=== PATIENT | male | born 1970 | race Caucasian/White ===

== ENCOUNTER → 2022-05-19 10:18 | Outpatient (CLI) | payer OTHER, SELFPAY ==
[2022-05-19 11:00] LABS: Add Manual Diff / Slide Review NO; Basophils Absolute Auto 0 /uL (0-100); Basophils Percent Auto 0.6 % (0-2); Eosinophils Absolute Auto 100 /uL (0-450); Eosinophils Percent Auto 2.1 % (2-4); Hematocrit 42.7 % (41-53); Hemoglobin 14.6 g/dL (13.5-17.5); Lymphocytes Absolute Auto 1600 /uL (1100-4500); Lymphocytes Percent Auto 39.2 % (25-40); Mean Corpuscular HGB Conc 34.3 % (30-36); Mean Corpuscular Hemoglobin 31.3 PG (26-34); Mean Corpuscular Volume 91.2 fL (80-100); Monocytes Absolute Auto 400 /uL (0-900); Neutrophils Absolute Auto 1900 /uL (1500-7000); Neutrophils Percent Auto 47.1 % (50-75); Platelet Count 190 X10^3/uL (150-400); Red Blood Cell Count 4.69 X10^6/uL (4.5-5.9); Red Cell Distribution Width 13.7 % (11.6-14.8); White Blood Cell Count 4.1 X10^3/uL (4.5-11.0)
[2022-05-19 11:08] LABS: Hemoglobin A1C% w Est Avg Glu 5.4 % (4.0-6.0)
[2022-05-19 11:32] LABS: Alanine Aminotransferase 30 IU/L (<50); Albumin 4.3 g/dL (3.5-5.0); Albumin Globulin Ratio 1.7 (1.0-2.8); Alkaline Phosphatase 52 U/L (38-126); Aspartate Aminotransferase 26 IU/L (17-59); BUN Creatinine Ratio 18.3 (6-22); Bilirubin Total 0.6 mg/dL (0.2-1.3); Blood Urea Nitrogen 15 mg/dL (9-20); Calcium 8.8 mg/dL (8.4-10.2); Carbon Dioxide 27 mmol/L (22-32); Chloride 103 mmol/L (98-107); Cholesterol 174 mg/dL (140-199); Estimated Glomerular Filt Rate > 60 mL/min (>60); Globulin 2.5 g/dL (1.7-4.1); Glucose 91 mg/dL (70-100); HDL Cholesterol 45 mg/dL (40-60); HEMOLYSIS < 15 (0-50); LDL Cholesterol Calculated 107 mg/dL (<100); Potassium 4.1 mmol/L (3.4-5.1); Sodium 138 mmol/L (137-145); Total Protein 6.8 g/dL (6.3-8.2); Triglycerides 109 mg/dL (35-150)
== END ==
PROVIDERS: PCP Family Medicine; Referring Provider Family Medicine; Visit Provider Family Medicine
DX: R03.0 Elevated blood-pressure reading, without diagnosis of hypertension (principal); Z13.1 Encounter for screening for diabetes mellitus; Z13.220 Encounter for screening for lipoid disorders
CPT/HCPCS: 36415; 80053; 80061; 83036; 85025

== ENCOUNTER 2023-03-18 09:41 | Outpatient (CLI) | payer OTHER, SELFPAY ==
[2023-03-18] VITALS (8 sets, daily range): BP systolic 147–163; BP diastolic 81–106; PULSE 58–72; RESP 13–18; TEMP 36.9; O2SAT 94–96
--- NOTE | 2023-03-18 10:30 | DI.RAD.S_ITS ---
PROCEDURE: PAIN GENICULAR NERVE BLOCK LT INDICATIONS: ARTHRITIS/PAIN COMPARISON: None. FINDINGS: Fluoroscopic spot filming was performed to verify placement of spinal needles at the left knee, as labeled on the films. Appropriate location(s) of the needle tip(s) was confirmed by injection of iodinated contrast. IMPRESSION: Intra procedural examination demonstrating appropriate positions of the needles. Dictated by: Daryl Mehta M.D. on 03/18/2023 at 12:14 Approved by: Daryl Mehta M.D. on 03/18/2023 at 12:15
[2023-03-18] MEDS: MIDAZOLAM 2 MG/2 ML VIAL IV (10:45)
[2023-03-18] MEDS: BUPIVACAINE 0.5% (PF) 10 ML VIAL 5 ML INJ (10:47)
[2023-03-18] MEDS: iopamidoL 15 ML VIAL 3 ML INJ (10:47)
--- NOTE | 2023-03-18 12:00 | P.PCN_ITS ---
Date/Time/Diagnoses Date of procedure: 03/18/23 Time of procedure: 10:30 Procedure Notes Physician: Ray Gold Total Fluoroscopy time (seconds): 17 Total sedation minutes: 11 Procedure in detail & Post-procedure care: Left Genicular Nerve Injections Indications: Herman is presenting for treatment of left knee osteoarthritis with knee pain. Preoperative diagnosis: Left knee osteoarthritis Postoperative diagnosis: Same Focused Examination: Ax3 Mood and affect are normal Vital Signs: VSS Consent: Following review of allergies and potential side effects/complications, including, but not necessarily limited to, infection, allergic reaction, local tissue breakdown, stroke, temporary or permanent nerve injury, paralysis, and possible , the patient indicated that they understood and agreed to proceed.? An informed consent document was signed by the patient, witnessed by a nurse and placed in the patient's chart.? Additionally, other treatment options including medications and physical therapy were reviewed with the patient. All questions were answered. Site was then marked. Anesthesia: Local Position: Prone Monitoring: NIBP, Pulse oximetry, 3 lead EKG Needle used: 22 ga, 3.5 inch spinal Contrast: Isovue 300-M 2 mL Injectate: 0.5% bupivacaine 1 mL per site Technique: The skin was prepped with chloraprep and then draped in a sterile fashion. Time out was performed as per protocol. Oxygen applied via NC. Skin and subcutaneous structures of the needle entry sites were then infiltrated with 5 mL of lidocaine 1% divided among the 3 injection sites. Under AP and lateral fluoroscopic control, the needles were guided into the expected location of the superomedial, superolateral and inferomedial genicular nerves. Isovue 300-M was then injected and the spread confirmed proper needle location. There was no evidence for intravascular uptake. After negative aspiration, the above- mentioned injectate was then slowly administered to each site and the needles withdrawn. The patient expressed no unusual discomfort or paresthesias during the injection. Band-Aids applied to injection sites. EBL: less than 1 ml Complications: None Post Procedure: Patient was taken to the recovery and monitored. The patient was provided a Pain Log to continue to record the patient's response to the target- specific procedure prior to the patient's follow-up visit with the referring physician. Patient was stable upon discharge. Detailed post procedure instructions were provided. Patient was asked to call in the event of worsening pain, fever, weakness, numbness or bladder or bowel incontinence.
== END 2023-03-18 11:18 | disposition home or self-care (01) ==
LOC: RAD 09:42
PROVIDERS: PCP Family Medicine; Referring Provider Anesthesiology; Visit Provider Anesthesiology
DX: M17.0 Bilateral primary osteoarthritis of knee (principal)
CPT/HCPCS: 64454; 99152; J2250

== ENCOUNTER → 2023-04-08 13:52 | Outpatient (CLI) | payer OTHER, SELFPAY ==
--- NOTE | 2023-04-08 13:53 | DI.ECHO.S_ITS ---
[facility]---------+ [facility] +---------+ : : [address] : [address] : : : : [id number] : : : : Phone: [phone]+ Echocardiogram Report + + :Name: ALEXIS OTOOLE Study Date: 04/08/2023 Height: 74.5 in: :[facility] ReadingLocation: Weight: 217 lb : : Gender: Male BSA: 2.3 m2 : :: 1970 Age: 53 yrs BP: 153/99 mmHg: :Reason For Study: ATRIAL FIBRILLATION : :Ordering Physician: ANTHONY TAOPerformed By: Arianne Prescott : :Referring: ANTHONY TAO : + + Interpretation Summary Normal left ventricle size with ejection fraction 55-60%. Mild mitral regurgitation. Procedure: A two-dimensional transthoracic echocardiogram with color flow and Doppler was performed. The study quality was technically adequate. There is no prior echocardiogram noted for this patient. The patient was in sinus rhythm with heart rates between 58-70 bpm during the exam. Left Ventricle: The left ventricle is normal in size and wall thickness. The ejection fraction is estimated to be 55-60%. There are no focal wall motion abnormalities. Diastolic parameters suggest probable normal left ventricular diastolic function and normal filling pressures. Right Ventricle: The right ventricle is normal in size and function. Atria: The left atrial size is normal. Right atrial size is normal. There is no Doppler evidence for an interatrial shunt. Mitral Valve: The mitral valve leaflets appear mildly thickened, but open well. There is mild mitral regurgitation. Aortic Valve: The aortic valve is trileaflet. The aortic valve opens well. There is no aortic valve stenosis. There is trace aortic regurgitation. Tricuspid Valve: The tricuspid valve is normal in structure and function. There is trace tricuspid regurgitation. The right ventricular systolic pressure is estimated to be at least 31 mmHg based on an estimated right atrial pressure of 3 mm Hg. Pulmonic Valve: The pulmonic valve leaflets are thin and pliable; valve motion is normal. There is mild pulmonic regurgitation. Great Vessels: The aortic root is normal size. The dimensions of the ascending aorta are normal. The IVC is dilated (diameter is greater than 2.1 cm) yet it collapses greater than 50% with a sniff. This suggests a right atrial pressure of 8 mm Hg. Pericardium/ Pleura There is no pericardial effusion. There is no pleural effusion. MMode/2D Measurements & Calculations LVIDd: 5.6 cm LVOT diam: 2.3 cm LVIDs: 3.7 cm Ao root diam: 3.6 cm FS: 34.2 % asc Aorta Diam: 3.5 cm EPSS: 0.70 cm Ao Arch Diam (Prox Trans): 3.1 cm IVSd: 0.99 cm LVPWd: 1.0 cm LV la. diameter/BSA (cm/m^2): 2.5 LV sys. diameter/BSA (cm/m^2): 1.6 LA A2 area: 20.1 cm2 RA long axis: 5.7 cm LA A4 area: 21.1 cm2 RA area: 18.5 cm2 LA length (vol): 5.4 cm RA vol: 51.5 ml LA vol: 66.0 ml RA : 22.8 ml/m2 LA vol index: 29.2 ml/m2 IVC diam: 2.3 cm RVD1 (basal): 4.4 cm RVD2 (mid): 3.1 cm TAPSE: 2.5 cm Doppler Measurements & Calculations Ao V2 max: 131.0 cm/sec LVOT Max Juan J: 97.0 cm/sec Ao V2 mean: 94.3 cm/sec LV V1 max P.8 mmHg Ao max P.9 mmHg LV V1 VTI: 20.8 cm Ao mean P.8 mmHg MESSI(I,D): 3.2 cm2 Ao V2 VTI: 28.4 cm MESSI(V,D): 3.2 cm2 sev ratio: 0.73 MESSI indexed to BSA (cm^2/m^2): 1.4 MV E max juan j: 62.8 cm/sec TR max juan j: 239.9 cm/sec MV A max juan j: 61.6 cm/sec TR max P.0 mmHg MV E/A: 1.0 PA V2 max: 93.3 cm/sec Med Peak E' Juan J: 6.8 cm/sec PA V2 mean: 60.1 cm/sec E/E' med: 9.2 PA mean P.7 mmHg Lat Peak E' Juan J: 10.1 cm/sec PA pr(Accel): 20.8 mmHg E/E' lat: 6.2 E/e' average: 7.7 MV dec time: 0.19 sec SV(LVOT): 89.8 ml Electronically signed by: Leonor Lin on Reading Physician:04/08/2023 10:52 PM
== END ==
LOC: ECHO 13:53
PROVIDERS: PCP Family Medicine; Referring Provider Family Medicine; Visit Provider Family Medicine
DX: I34.0 Nonrheumatic mitral (valve) insufficiency (principal); I37.1 Nonrheumatic pulmonary valve insufficiency; I48.0 Paroxysmal atrial fibrillation
CPT/HCPCS: 93306

== ENCOUNTER 2023-04-29 13:04 | Outpatient (CLI) | payer OTHER, SELFPAY ==
[2023-04-29] VITALS (8 sets, daily range): BP systolic 130–159; BP diastolic 71–106; PULSE 55–69; RESP 12–19; TEMP 37.1; O2SAT 95–98
[2023-04-29] MEDS: MIDAZOLAM 2 MG/2 ML VIAL IV (13:56)
[2023-04-29] MEDS: LIDOCAINE 2% INJ MDV 20ML 5 ML INJ (14:00)
--- NOTE | 2023-04-29 14:00 | DI.RAD.S_ITS ---
PROCEDURE: PAIN GENICULAR NERVE BLOCK LT INDICATIONS: LEFT KNEE OSTEOARTHRITIS TECHNIQUE: 3 views of the knee were acquired. COMPARISON: [facility], , PAIN GENICULAR NERVE BLOCK LT, 03/18/2023, 11:42. Findings and impression: Fluoroscopic spot images were obtained to verify placement of needles around the left knee. Injection of iodinated contrast was used to confirm position. Please see procedure note for full details. Degenerative changes are seen. Dictated by: Earl Farris M.D. on 04/29/2023 at 16:51 Approved by: Earl Farris M.D. on 04/29/2023 at 16:52
[2023-04-29] MEDS: iopamidoL 15 ML VIAL 3 ML INJ (14:01)
--- NOTE | 2023-04-29 14:53 | P.PCN_ITS ---
Date/Time/Diagnoses Date of procedure: 04/29/23 Time of procedure: 14:00 Procedure Notes Physician: Ray Gold Total Fluoroscopy time (seconds): 18 Total sedation minutes: 14 Procedure in detail & Post-procedure care: Left Genicular Nerve Injections Indications: Herman is presenting for treatment of left knee osteoarthritis with knee pain. Preoperative diagnosis: Left knee osteoarthritis Postoperative diagnosis: Same Focused Examination: Ax3 Mood and affect are normal Vital Signs: VSS Consent: Following review of allergies and potential side effects/complications, including, but not necessarily limited to, infection, allergic reaction, local tissue breakdown, stroke, temporary or permanent nerve injury, paralysis, and possible , the patient indicated that they understood and agreed to proceed.? An informed consent document was signed by the patient, witnessed by a nurse and placed in the patient's chart.? Additionally, other treatment options including medications and physical therapy were reviewed with the patient. All questions were answered. Site was then marked. Anesthesia: After review of previous anesthetic history and IV conscious sedation, the patient was deemed safe to proceed with today's procedure with IV conscious sedation. IV sedation was accomplished with midazolam 2 mg administered by the RN after order by Dr. Gold. Sedation was titrated to patient comfort during the course of the procedure. Patient remained responsive to all verbal commands. Position: Prone Monitoring: NIBP, Pulse oximetry, 3 lead EKG Needle used: 22 ga, 3.5 inch spinal Contrast: Isovue 300-M 2 mL Injectate: 2% lidocaine 1 mL per site Technique: The skin was prepped with chloraprep and then draped in a sterile fashion. Time out was performed as per protocol. Oxygen applied via NC. Skin and subcutaneous structures of the needle entry sites were then infiltrated with 5 mL of lidocaine 1% divided among the 3 injection sites. Under AP and lateral fluoroscopic control, the needles were guided into the expected location of the superomedial, superolateral and inferomedial genicular nerves. Isovue 300-M was then injected and the spread confirmed proper needle location. There was no evidence for intravascular uptake. After negative aspiration, the above- mentioned injectate was then slowly administered to each site and the needles withdrawn. The patient expressed no unusual discomfort or paresthesias during the injection. Band-Aids applied to injection sites. EBL: less than 1 ml Complications: None Post Procedure: Patient was taken to the recovery and monitored. The patient was provided a Pain Log to continue to record the patient's response to the target- specific procedure prior to the patient's follow-up visit with the referring physician. Patient was stable upon discharge. Detailed post procedure instructions were provided. Patient was asked to call in the event of worsening pain, fever, weakness, numbness or bladder or bowel incontinence.
== END 2023-04-29 14:33 | disposition home or self-care (01) ==
LOC: RAD 13:05
PROVIDERS: PCP Family Medicine; Referring Provider Anesthesiology; Visit Provider Anesthesiology
DX: M17.12 Unilateral primary osteoarthritis, left knee (principal)
CPT/HCPCS: 64454; 99152; J2250

== ENCOUNTER 2023-07-01 09:24 | Outpatient (CLI) | payer OTHER, SELFPAY ==
[2023-07-01] VITALS (9 sets, daily range): BP systolic 133–155; BP diastolic 75–100; PULSE 50–68; RESP 12–22; TEMP 36.8; O2SAT 96–98
[2023-07-01] MEDS: MIDAZOLAM 2 MG/2 ML VIAL IV (10:00)
--- NOTE | 2023-07-01 10:00 | DI.RAD.S_ITS ---
PROCEDURE: GENICULAR RFA LEFT INDICATIONS: LEFT KNEE ARTHRITIS COMPARISON: None. FINDINGS: Fluoroscopic spot filming was performed to verify placement of spinal needles localized for genicular rhizotomy level(s), as labeled on the films. Appropriate location(s) of the needle tip(s) was confirmed by injection of iodinated contrast. IMPRESSION: Needle localization as above. Dictated by: Delmi Schaffer M.D. on 07/01/2023 at 13:43 Approved by: Delmi Schaffer M.D. on 07/01/2023 at 13:44
[2023-07-01] MEDS: LIDOCAINE 2% INJ MDV 20ML 5 ML INJ (10:02)
[2023-07-01] MEDS: DEXAMETHASONE 10 MG/ML VIAL INJ (10:03)
[2023-07-01] MEDS: BUPIVACAINE 0.5% (PF) 10 ML VIAL 5 ML INJ (10:03)
--- NOTE | 2023-07-01 11:40 | P.PCN_ITS ---
Date/Time/Diagnoses Date of procedure: 07/01/23 Time of procedure: 10:00 Procedure Notes Physician: Ray Gold Total Fluoroscopy time (seconds): 14 Total sedation minutes: 24 Procedure in detail & Post-procedure care: Left Genicular Nerve Radiofrequency Ablation Indications: Herman is presenting for treatment of left knee osteoarthritis with knee pain. Preoperative diagnosis: Left knee osteoarthritis Postoperative diagnosis: Same Focused Examination: Ax3 Mood and affect are normal Vital Signs: VSS Consent: Following review of allergies and potential side effects/complications, including, but not necessarily limited to, infection, allergic reaction, local tissue breakdown, stroke, temporary or permanent nerve injury, paralysis, and possible , the patient indicated that they understood and agreed to proceed.? An informed consent document was signed by the patient, witnessed by a nurse and placed in the patient's chart.? Additionally, other treatment options including medications and physical therapy were reviewed with the patient. All questions were answered. Site was then marked. Anesthesia: After review of previous anesthetic history and IV conscious sedation, the patient was deemed safe to proceed with today's procedure with IV conscious sedation. IV sedation was accomplished with midazolam 2 mg administered by the RN after order by Dr. Gold. Sedation was titrated to patient comfort during the course of the procedure. Patient remained responsive to all verbal commands. Position: Supine Monitoring: NIBP, Pulse oximetry, 3 lead EKG Procedure: The patient was brought into the procedure room and positioned into the supine position with the affected knee on a bolster for elevation. Skin overlying the left knee was prepped with a Chloraprep solution, allowed to air dry, and then draped in sterile fashion.? Oxygen applied via NC. Using the AP fluoroscopic view, skin and subcutaneous structures of the needle entry sites were infiltrated with 5 mL of lidocaine 1% divided among the 3 injection sites. Under AP and lateral fluoroscopic control, an 18 ga, 100 mm RFA needle with a 10 mm active tip was advanced into the expected location of the superomedial, superolateral and inferomedial genicular nerves. AP and lateral radiographs were taken to confirm proper needle placement. No paresthesias were noted. The stylet was removed and the radiofrequency probe was inserted through the cannula. Each level was individually tested.? Motor stimulation up to 2V did not elicit any motor stimulation. After negative aspiration, 1ml of 2% lidocaine was injected at each of the locations and radiofrequency ablation carried out using 80 degrees Celsius for 60 seconds. The needles were then withdrawn several milimeters and a second ablation was performed at 80 degrees Celsius for 60 seconds. The needles were then withdrawn several milimeters and a third ablation was performed at 80 degrees Celsius for 60 seconds. After ablation, a mixture of 10 mg dexamethasone with 0.5% bupivacaine 2 mL was injected in equal amounts among the sites (1 mL per site). At the end of the procedure the needles were withdrawn and Band-Aids were applied for a dressing. EBL: less than 1 ml Complications: None Post Procedure: Patient was taken to the recovery and monitored. The patient was provided a Pain Log to continue to record the patient's response to the target- specific procedure prior to the patient's follow-up visit with the referring physician. Patient was stable upon discharge. Detailed post procedure instructions were provided. Patient was asked to call in the event of worsening pain, fever, weakness, numbness or bladder or bowel incontinence
--- NOTE | 2023-07-02 12:50 | PC.NURSE ---
spoke with patient about his procedure yesterday and states he is doing well. Reports that he notices a little swelling to the left knee when he bends down, but does not have the aching pain he normally does. Has no questions or concerns at this time.
== END 2023-07-01 10:40 | disposition home or self-care (01) ==
LOC: RAD 09:25
PROVIDERS: PCP Family Medicine; Referring Provider Anesthesiology; Visit Provider Anesthesiology
DX: M17.12 Unilateral primary osteoarthritis, left knee (principal)
CPT/HCPCS: 64624; 99152; 99153; J1100; J2250

== ENCOUNTER → 2023-08-19 15:52 | Outpatient (CLI) | payer OTHER, SELFPAY ==
--- NOTE | 2023-08-19 15:53 | DI.MRI.S_ITS ---
PROCEDURE: MR KNEE RT WO CON INDICATIONS: Chronic knee pain - right TECHNIQUE: Noncontrast sagittal PD fast spin echo and T2 fast spin echo with fat saturation, sagittal 3-D FLASH with fat saturation; coronal T1 spin echo and PD fast spin echo with fat saturation, and axial PD fast spin echo with fat saturation through the knee. COMPARISON: [facility], RG, MRI KNEE RT WITHOUT CONTRAST, 11/28/2021, 8:58. [facility], MR, MR KNEE LT WO CON, 08/19/2023, 16:03. FINDINGS: Image quality: Excellent. Menisci: The medial meniscus is unremarkable. The lateral meniscus is unremarkable as well. Cruciate ligaments: The anterior and posterior cruciate ligaments appear intact. Medial structures: The medial collateral ligament appears intact. The posterior oblique ligament, semimembranosus tendon insertions, oblique popliteal ligament, and meniscocapsular junction appear intact. Visualized portions of the pes anserinus tendons appear normal. No abnormal bursal fluid. Lateral structures: The lateral collateral ligament, long and short heads of the biceps femoris tendon appear intact. The popliteus tendon appears normal; the popliteofibular ligament appears intact. The posterosuperior and anteroinferior popliteomeniscal fascicles appear intact. The arcuate and fabellofibular ligaments appear intact, on either side of the lateral inferior geniculate artery. Iliotibial band appears normal. Anterior structures: The distal quadriceps tendon is unremarkable. The patellar tendon is unremarkable. Marked superolateral Hoffa's fat pad edema, raising concern for patellar maltracking. The patellofemoral ligaments are intact. Alignment of the patellofemoral compartment is anatomic. Bones and cartilage: Large areas of full-thickness chondral loss in the lateral patellar facet, with multifocal subchondral marrow edema and subchondral cystic changes. There is mild chondral irregularity in the medial patella facet. There is high-grade chondral loss in the medial trochlea with mild subchondral cystic changes and marrow edema. Large area of high-grade chondral loss in the central trochlea. Mild chondral irregularity of the lateral trochlea with mild subchondral marrow edema. In the medial compartment, the cartilage is grossly well maintained. In the lateral compartment, there is cartilage delamination in the posterior weight-bearing portion of the femoral condyle. Additional mild chondral irregularity of the femoral condyle. Multifocal subchondral cystic changes in the tibial eminence, and in the anterior medial tibial plateau, favor reactive. No acute fracture. Joint space: Small knee effusion. No intra-articular body. Small popliteal cyst. Popliteal vasculature is unremarkable. IMPRESSION: 1. Findings suggestive of patellar maltracking. Moderate chondrosis of the patellofemoral compartment. 2. Mild chondrosis the lateral compartment with cartilage delamination in the femoral condyle. Dictated by: Constance Palacios M.D. on 08/20/2023 at 10:47 Approved by: Constance Palacios M.D. on 08/20/2023 at 10:58
--- NOTE | 2023-08-19 15:53 | DI.MRI.S_ITS ---
PROCEDURE: MR KNEE LT WO CON INDICATIONS: Chronic knee pain - left TECHNIQUE: Noncontrast sagittal PD fast spin echo and T2 fast spin echo with fat saturation, sagittal 3-D FLASH with fat saturation; coronal T1 spin echo and PD fast spin echo with fat saturation, and axial PD fast spin echo with fat saturation through the knee. COMPARISON: [facility], MR, MR KNEE RIGHT WITHOUT CONTRAST, 11/28/2021, 8:58. FINDINGS: Image quality: Excellent. Menisci: In the medial meniscus, there is a small oblique tear at the junction of the posterior horn and the meniscus body. There is mild extrusion of the medial meniscus. For the lateral meniscus is unremarkable. Cruciate ligaments: The anterior and posterior cruciate ligaments appear intact. Medial structures: Grade 1 sprain of the distal MCL. Lateral structures: The lateral collateral ligament, long and short heads of the biceps femoris tendon appear intact. The popliteus tendon appears normal; the popliteofibular ligament appears intact. The posterosuperior and anteroinferior popliteomeniscal fascicles appear intact. The arcuate and fabellofibular ligaments appear intact, on either side of the lateral inferior geniculate artery. Iliotibial band appears normal. Anterior structures: Mild tendinosis of the distal quadriceps tendon. The patellar tendon is unremarkable. Lateral tilt of the patella. There is a 1.0 cm ossification with associated subchondral cystic changes and marrow edema about the lateral aspect of the patella, representing intra-articular body. Superolateral Hoffa's fat pad edema, raising concern for patellar maltracking. Bones and cartilage: There is large area of high-grade chondral loss in the lateral patellar facet, with subchondral cystic changes and marrow edema. Multifocal chondral irregularity and full-thickness fissuring in the medial trochlea. The cartilage of the lateral trochlea is grossly well maintained. In the medial compartment, the cartilage is grossly well maintained. In the lateral compartment, there is high-grade chondral loss in the posterior weight-bearing portion of the femoral condyle with full-thickness chondral fissuring. There is mild subchondral cystic changes seen in the tibial eminence, reactive. Mild marrow edema in the posterior aspect of the medial tibial plateau, favor reactive. No acute fracture. Joint space: Small knee effusion. No popliteal cyst. Popliteal vasculature is unremarkable. IMPRESSION: 1. Small oblique tear of the medial meniscus 2. Grade 1 sprain of the distal MCL. 3. Findings suggestive of patellar maltracking with lateral tilt of the patella, superolateral Hoffa's fat pad edema, and moderate chondrosis of the patellofemoral compartment 4. 1.0 cm intra-articular body about the lateral aspect of the patella. 5. Mild chondrosis of the lateral compartment. Dictated by: Constance Palacios M.D. on 08/20/2023 at 10:28 Approved by: Constance Palacios M.D. on 08/20/2023 at 10:43
== END ==
LOC: MRI 15:52
PROVIDERS: PCP Family Medicine; Referring Provider Anesthesiology; Visit Provider Anesthesiology
DX: S83.242A Other tear of medial meniscus, current injury, left knee, initial encounter (principal); S83.412A Sprain of medial collateral ligament of left knee, initial encounter; M22.42 Chondromalacia patellae, left knee; M23.42 Loose body in knee, left knee; M22.41 Chondromalacia patellae, right knee; M22.2X1 Patellofemoral disorders, right knee; M22.2X2 Patellofemoral disorders, left knee; M17.0 Bilateral primary osteoarthritis of knee; M25.562 Pain in left knee; M25.561 Pain in right knee
CPT/HCPCS: 73721

== ENCOUNTER → 2024-09-22 09:13 | Outpatient (CLI) | payer OTHER, SELFPAY ==
[2024-09-22 09:47] LABS: Hematocrit 42.5 % (41-53); Hemoglobin 14.3 g/dL (13.5-17.5); Mean Corpuscular HGB Conc 33.7 % (30-36); Mean Corpuscular Hemoglobin 31.6 PG (26-34); Mean Corpuscular Volume 93.7 fL (80-100); Platelet Count 189 X10^3/uL (150-400); Red Blood Cell Count 4.54 X10^6/uL (4.5-5.9); Red Cell Distribution Width 13.9 % (11.6-14.8); White Blood Cell Count 4.5 X10^3/uL (4.5-11.0)
[2024-09-22 10:10] LABS: Alanine Aminotransferase 20 IU/L (<50); Albumin 4.5 g/dL (3.5-5.0); Alkaline Phosphatase 55 U/L (38-126); Aspartate Aminotransferase 26 IU/L (17-59); BUN Creatinine Ratio 24.4 (6-22); Blood Urea Nitrogen 21 mg/dL (9-20); Carbon Dioxide 29 mmol/L (22-32); Chloride 103 mmol/L (98-107); Cholesterol 226 mg/dL (140-199); Estimated Glomerular Filt Rate > 60 mL/min (>60); Globulin 2.2 g/dL (1.7-4.1); Glucose 95 mg/dL (70-99); HDL Cholesterol 80 mg/dL (40-60); HEMOLYSIS < 15 (0-50); LDL Cholesterol Calculated 135 mg/dL (<100); Potassium 4.1 mmol/L (3.4-5.1); Sodium 138 mmol/L (137-145); Total Protein 6.7 g/dL (6.3-8.2); Triglycerides 54 mg/dL (35-150)
[2024-09-22 10:39] LABS: Prostate Specific Antigen Scrn 0.692 ng/mL (0.1-4.0)
== END ==
PROVIDERS: PCP Family Medicine; Referring Provider Family Medicine; Visit Provider Family Medicine
DX: I48.0 Paroxysmal atrial fibrillation (principal); E78.5 Hyperlipidemia, unspecified; Z12.5 Encounter for screening for malignant neoplasm of prostate
CPT/HCPCS: 36415; 80053; 80061; 85027; G0103

== ENCOUNTER → 2024-12-23 09:14 | Outpatient (CLI) | payer OTHER, SELFPAY ==
--- NOTE | 2024-12-23 09:16 | DI.RAD.S_ITS ---
PROCEDURE: XR LUMBAR SPINE MIN 4V INDICATIONS: BACK PAIN TECHNIQUE: 5 views of the lumbar spine were acquired, including bilateral oblique views. COMPARISON: None. FINDINGS: Bones: Five nonrib-bearing vertebrae are present. Mild right lateral subluxation L3 on four. Grade 1 retrolisthesis L3-4 and to lesser extent L2-3. Mild disc height loss at every level, most severe at L5-S1. No vertebral body compression fractures. No suspicious bony lesions. Soft tissues: Overlying bowel gas pattern is normal. No suspicious soft tissue calcifications. Oblique images: No pars defects. IMPRESSION: Spondylosis and spondylolisthesis, predominantly at L3-4. Dictated by: Shilpi Hoffmann M.D. on 12/23/2024 at 10:37 Approved by: Shilpi Hoffmann M.D. on 12/23/2024 at 10:38
== END ==
PROVIDERS: PCP Family Medicine; Referring Provider Physical Medicine & Rehabilitation; Visit Provider Physical Medicine & Rehabilitation
DX: M47.816 Spondylosis without myelopathy or radiculopathy, lumbar region (principal); M43.16 Spondylolisthesis, lumbar region; M54.9 Dorsalgia, unspecified
CPT/HCPCS: 72110

== ENCOUNTER 2025-01-04 07:40 | Outpatient (CLI) | payer OTHER, SELFPAY ==
[2025-01-04 08:25] VITALS: BP 131/73; PULSE 66; RESP 16; TEMP 36.4; O2SAT 96
[2025-01-04 08:55] VITALS: BP 141/74; PULSE 63; RESP 17; O2SAT 98
[2025-01-04 09:03] VITALS: BP 138/75; RESP 17; O2SAT 97
[2025-01-04] MEDS: LIDOCAINE 1% (PF) 5 ML INJ (09:05)
[2025-01-04 09:10] VITALS: BP 137/76; PULSE 54; RESP 16; O2SAT 97
--- NOTE | 2025-01-04 12:47 | PM.PROC.IR.1 ---
Date/Time/Diagnoses Date of procedure: 11/09/24 Time of procedure: 08:30 Pre-procedure diagnosis: Low back/sacroiliac joint pain/dysfunction Post-procedure diagnosis: same Procedure Notes Procedure: Left sacroiliac joint injection Indications: Low back/sacroiliac joint pain/dysfunction Physician: Moise Wall Total sedation minutes: 0 Complications: none Procedure in detail & Post-procedure care: Patient is here for the planned procedure today as noted. No significant change since the last office visit. For additional clinical scenario please see those office notes. Focused exam: Vital signs reviewed as charted on intake. Gen: Well developed. No acute distress. CV: RRR, no M/R/G Chest: Non-labored breathing, CTAB. Psych: Alert and well-oriented. Mood/Affect: normal. Patient suitable for the planned procedure today: Yes === The following procedure was performed today: Sacroiliac joint injection with fluoroscopic guidance (08019) Approach: Posterior, inferior pole Laterality: Left Soft tissue: [1% lidocaine 1 mL] Injectate: [1 mL of methylprednisolone (40mg/mL) in 2.5 mL 1% lidocaine] Fluoroscopy Agent: Isovue 300-M 0.8 mL Notes: 3.5 in 22 gauge spinal needle utilized end adequate. Preprocedure pain 3/10, postprocedure pain 0/10. Procedure: Informed consent was obtained and all patient questions were answered. After discussing the risks, benefits, and alternatives to the procedure, the patient expressed understanding and wished to proceed. The patient was brought to the procedure suite and placed in the prone position, and prepped and draped in a sterile fashion. A pre-procedural pause was conducted to verify: correct patient identity, procedure to be performed and as applicable, correct side and site, correct patient position, and any special requirements. The fluoroscopic C-arm was positioned for optimal visualization of the targeted sacroiliac (SI) joint. The inferior portion of the SI joint was localized under fluoroscopic visualization and local anesthetic was utilized for soft tissue local anesthesia. A 22 gauge spinal needle was inserted into the fluoroscopically hyperlucent region within the SI joint. Aspiration negative. If noted above, the noted contrast agent was injected and a partial arthrogram was obtained. Multiplanar imaging was performed for confirmation and appropriate images were saved. The steroid/anesthetic solution noted above was then injected into the SI joint. The patient tolerated the procedure well and was discharged after an appropriate period of observation. If there are any complications or concerns, the patient was instructed to call us. The patient is to follow-up with the ordering provider in 2-3 weeks/as planned. This note was compiled using voice recognition software and therefore may contain typos. Please contact the author with any questions or concerns.
== END 2025-01-04 09:15 | disposition home or self-care (01) ==
LOC: RAD 07:41
PROVIDERS: PCP Family Medicine; Referring Provider Physical Medicine & Rehabilitation; Visit Provider Physical Medicine & Rehabilitation
DX: M53.3 Sacrococcygeal disorders, not elsewhere classified (principal); M54.50 Low back pain, unspecified
CPT/HCPCS: 27096; J1010

== ENCOUNTER → 2025-03-16 16:54 | Outpatient (CLI) | payer OTHER, SELFPAY ==
--- NOTE | 2025-03-16 16:55 | DI.MRI.S_ITS ---
4PROCEDURE: MR LUMBAR SPINE WO CON INDICATIONS: low back pain radiating to LLE TECHNIQUE: Noncontrast sagittal T1 spin echo and T2 fast echo, sagittal STIR, and T2 fast spin echo through the lumbar spine. In cases with scoliosis, additional coronal T2 fast spin echo may be performed. COMPARISON: None. FINDINGS: Image quality: Excellent. Alignment and Curvature: Mild dextroscoliotic curvature. Loss of the normal lumbar lordosis. Bone Marrow: Multilevel degenerative endplate changes. Marrow is of normal overall signal. No acute vertebral body compression fractures. Spinal Cord: Conus medullaris terminates at the L1 level. Visualized cord demonstrates normal signal and size. Paraspinous Soft Tissues: No paravertebral masses. T12-L1: Disc desiccation and height loss. Facet arthropathy. No central canal or neural foraminal stenosis. L1-L2: Disc desiccation. Mild facet arthropathy. No central canal or neural foraminal stenosis. L2-L3: Disc desiccation and mild disc bulge with small posterior annular tear. Facet arthropathy. No central canal or neural foraminal stenosis. L3-L4: Disc desiccation and mild height loss. Mild disc bulge. Mild facet arthropathy. No central canal stenosis. Mild bilateral neural foraminal stenosis. L4-L5: Disc desiccation and mild diffuse disc bulge with posterior annular tear. Mild facet arthropathy. No significant central canal stenosis. Mild narrowing of the right lateral recess with abutment the descending right L5 nerve root. Mild bilateral neural foraminal stenosis. L5-S1: Disc desiccation and moderate height loss. Mild facet arthropathy. No central canal stenosis. Moderate right and mild left neural foraminal stenosis. IMPRESSION: 1. Multilevel degenerative changes of the lumbar spine as described above. 2. No significant central canal stenosis. 3. Moderate right neural foraminal stenosis at L5-S1. Mild neural foraminal stenosis is noted at other levels. Dictated by: Daryl Mehta M.D. on 03/17/2025 at 10:31 Approved by: Daryl Mehta M.D. on 03/17/2025 at 10:34
== END ==
PROVIDERS: PCP Family Medicine; Referring Provider Physical Medicine & Rehabilitation; Visit Provider Physical Medicine & Rehabilitation
DX: M47.26 Other spondylosis with radiculopathy, lumbar region (principal); M47.27 Other spondylosis with radiculopathy, lumbosacral region; M48.07 Spinal stenosis, lumbosacral region; M48.061 Spinal stenosis, lumbar region without neurogenic claudication; M54.50 Low back pain, unspecified; G89.29 Other chronic pain
CPT/HCPCS: 72148